=== PATIENT | female | born 1990 | race African-American/Black ===

== ENCOUNTER 2016-04-02 13:32 | Emergency (ER) | payer OTHER ==
[~2016-04-02] VITALS: Ht 160 cm; Wt 58.1 kg
[2016-04-02 14:52] VITALS: BP 145/77
[2016-04-02] MEDS ORDERED: ACETAMINOPHEN ES 500 MG TABLET ONE (15:27)
[2016-04-02] MEDS ORDERED: IBUPROFEN 400 MG TABLET ONE (15:27)
[2016-04-02] MEDS ORDERED: ACETAMINOPHEN ES 500 MG TABLET PO ONE (15:30)
[2016-04-02] MEDS ORDERED: IBUPROFEN 400 MG TABLET PO ONE (15:30)
== END 2016-04-02 18:17 | disposition home or self-care (01) ==
LOC: ER 13:34
DX: J11.1 Influenza due to unidentified influenza virus with other respiratory manifestations (principal)
CPT/HCPCS: 71010; 84703; 99283; A4606; Z7610